=== PATIENT | female | born 1955 ===

== ENCOUNTER 2020-06-26 07:00 | Day surgery (SDC) | payer OTHER ==
[~2020-06-26] VITALS: Ht 160 cm; Wt 72.6 kg
== END 2020-06-27 08:00 | disposition home or self-care (01) ==
LOC: SURH 07:00 → CIR.AMB 07:00 → SURH 08:15 → O/R 08:15 → EDSTATUS 08:15 → O/R 10:24 → SURH 10:24 → O/R 10:24 → CIR.AMB 06-27 08:00 → O/R 06-27 10:15 → SURH 06-27 10:15
PROVIDERS: ATTEND Specialist
DX: D05.11 Intraductal carcinoma in situ of right breast (principal)